=== PATIENT | male | born 1955 | race African-American/Black ===

== ENCOUNTER → 2017-02-08 | Outpatient (CLI) | payer SELFPAY ==
[~2017-02-08] MED LIST: AMLODIPINE BESYL5 MG PO; FORA V10-V12-D1 EACH MC; GLUCOMETER MC; HYDROCHLOROTH12.5 M3 PO; KEFLEX500 MG PO; METFORMIN HCL1000 MG PO; NAPROSYN500 MG PO; PERCOCET 5/31 TABLET PO; PERIDEX1 ML MM; PRAVASTATIN SOD40 MG PO; TEST STRIPS MC
== END | disposition home or self-care (01) ==
LOC: RAD 12:12
DX: R80.9 Proteinuria, unspecified (principal)
CPT/HCPCS: 76770

== ENCOUNTER → 2017-03-07 | Outpatient (CLI) | payer SELFPAY | END | disposition home or self-care (01) | LOC: MRI 10:11 → RAD 11:00 | DX: R94.39 Abnormal result of other cardiovascular function study (principal); I77.1 Stricture of artery; R93.5 Abnormal findings on diagnostic imaging of other abdominal regions, including retroperitoneum; R93.6 Abnormal findings on diagnostic imaging of limbs | CPT/HCPCS: 73725 ==

== ENCOUNTER 2017-05-27 09:39 | Inpatient (IN) | payer OTHER ==
[~2017-05-27] VITALS: Ht 167.6 cm; Wt 78.3 kg
[2017-05-27 13:00] LABS: HEMATOCRIT 35.7 % (38.0-50.0); MCH 27.1 PG (29.0-34.0); MCHC 34.7 G/DL (30.0-36.0); MCV 78.1 FL (86-99); MEAN PLAT.VOLUME 11.2 uM^3 (9.0-12.4); PLATELET COUNT 201 K/uL (156-360); RBC DIS.WIDTH-CV 12.1 % (11.8-14.6); RBC DIS.WIDTH-SD 34.3 % (39-53); RED BLOOD COUNT 4.57 M/uL (4.00-5.50); WHITE BLOOD COUNT 9.3 K/uL (4.1-10.2)
[2017-05-27 13:11] LABS: CHLORIDE 98 mEq/L (99-109); SODIUM 138 mEq/L (136-147)
[2017-05-27 13:13] LABS: GLUCOSE 69 mg/dL (70-99)
[2017-05-27 13:14] LABS: ANION GAP 14 MEQ/L (2-14)
[2017-05-27 13:17] LABS: GFR ESTIMATE (CALCULATED) 14 mL/min/
[2017-05-27 13:18] LABS: UREA NITROGEN (BUN) 70 mg/dL (9-23)
[2017-05-27 13:21] LABS: TROP-I INTERPRETATION NEGATIVE; TROPONIN-I 0.18 ng/mL (0.0-0.30)
[2017-05-27 16:39] LABS: CHLORIDE 107 mEq/L (99-109); SODIUM 140 mEq/L (136-147)
[2017-05-27 16:40] LABS: GLUCOSE 51 mg/dL (70-99)
[2017-05-27 16:42] LABS: ANION GAP 12 MEQ/L (2-14)
[2017-05-27 16:44] LABS: GFR ESTIMATE (CALCULATED) 18 mL/min/
[2017-05-27 16:45] LABS: UREA NITROGEN (BUN) 61 mg/dL (9-23)
[2017-05-27 16:54] LABS: POTASSIUM 2.3 mEq/L (3.7-5.4)
[2017-05-27 17:32] VITALS: BP 138/71
[2017-05-27 17:47] LABS: ADD MIUA? YES; BILIRUBIN NEGATIVE; BLOOD MODERATE; COLOR YELLOW ((YELLOW)); GLUCOSE (STRIP) >=500; KETONES NEGATIVE; LEUKOCYTES NEGATIVE; NITRITE NEGATIVE; PROTEIN (STRIP) 30; SPECIFIC GRAVITY 1.013 (1.000-1.030); UROBILINOGEN 0.2 MG/DL (0.2-1.0)
[2017-05-27 17:54] LABS: POINT-OF-CARE METER ID UU13113698; POINT-OF-CARE USER ID NUTSLF44
[2017-05-27 17:59] LABS: BACTERIA RARE /HPF; EPITHELIAL CELLS RARE /HPF; MUCUS TRACE /LPF; RED BLOOD CELLS 0-5 /HPF (0-5); UCUL ADDED? NO
[2017-05-27 18:08] LABS: UR CREATININE CONCENTRATION 153.7 MG/DL
[2017-05-27 18:10] LABS: TOTAL BILIRUBIN 0.3 mg/dL (0.0-1.0)
[2017-05-27 18:11] LABS: ALKALINE PHOSPHATASE 51 IU/L (3-129)
[2017-05-27 18:13] LABS: DIRECT BILIRUBIN 0.2 mg/dL (0.0-0.3)
[2017-05-27 18:20] LABS: POINT-OF-CARE METER ID UU13113698; POINT-OF-CARE USER ID NUTSLF44
[2017-05-27 20:03] VITALS: BP 131/68
[2017-05-27 20:33] LABS: TROP-I INTERPRETATION NEGATIVE; TROPONIN-I 0.15 ng/mL (0.0-0.30)
[2017-05-28 00:44] LABS: CHLORIDE 101 mEq/L (99-109); SODIUM 138 mEq/L (136-147)
[2017-05-28 00:47] LABS: ANION GAP 13 MEQ/L (2-14)
[2017-05-28 00:50] LABS: UREA NITROGEN (BUN) 71 mg/dL (9-23)
[2017-05-28 01:01] LABS: GFR ESTIMATE (CALCULATED) 14 mL/min/; GLUCOSE 91 mg/dL (70-99); POTASSIUM 3.5 mEq/L (3.7-5.4)
[2017-05-28 01:12] VITALS: BP 144/77
[2017-05-28 04:25] VITALS: BP 166/87
[2017-05-28 06:27] LABS: MCH 27.2 PG (29.0-34.0); MCHC 34.5 G/DL (30.0-36.0); MCV 78.8 FL (86-99); RBC DIS.WIDTH-CV 12.4 % (11.8-14.6); RBC DIS.WIDTH-SD 35.3 % (39-53); RED BLOOD COUNT 4.19 M/uL (4.00-5.50); WHITE BLOOD COUNT 8.1 K/uL (4.1-10.2)
[2017-05-28 06:53] LABS: ANION GAP 12 MEQ/L (2-14); CHLORIDE 101 MEQ/L (99-109); CREATINE KINASE 505 IU/L (1-294); GFR ESTIMATE (CALCULATED) 15 mL/min/; GLUCOSE 71 mg/dL (70-99); MAGNESIUM 2.3 mg/dl (1.3-2.7); POTASSIUM 3.7 MEQ/L (3.7-5.4); SAMPLE HEMOLYSIS CHECK 0; SAMPLE ICTERIC CHECK 0; SAMPLE LIPEMIA CHECK 0; SODIUM 137 MEQ/L (136-147); UREA NITROGEN (BUN) 70 mg/dL (9-23)
[2017-05-28 07:10] LABS: URIC ACID 12.1 mg/dL (3.1-9.2)
[2017-05-28 07:50] VITALS: BP 183/94
[2017-05-28 08:17] LABS: INTACT PARATHYROID HORMONE 28 pg/mL (10-69)
[2017-05-28 08:18] LABS: POINT-OF-CARE METER ID UU13113698; POINT-OF-CARE USER ID NUTSLF44
[2017-05-28 08:53] LABS: MEAN PLAT.VOLUME 11.8 uM^3 (9.0-12.4); PLATELET COUNT 228 K/uL (156-360)
[2017-05-28 11:43] LABS: POINT-OF-CARE METER ID UU14174216; POINT-OF-CARE USER ID NUTSLF44
[2017-05-28] MEDS ORDERED: FOLIC ACID1 MG PO (12:01)
[2017-05-28] MEDS ORDERED: NORVASC10 MG PO (12:01)
[2017-05-28] MEDS ORDERED: METFORMIN HCL1000 MG PO (12:01)
[2017-05-28] MEDS ORDERED: LEXAPRO10 MG PO (12:01)
[2017-05-28] MEDS ORDERED: ASPIR-LOW81 MG PO (12:01)
[2017-05-28] MEDS ORDERED: VITAMIN D31000 UNI2 PO (12:02)
[2017-05-28] MEDS ORDERED: NEURONTIN300 MG PO (12:02)
[2017-05-28] MEDS ORDERED: LISINOPRIL20 MG PO (12:02)
[2017-05-28] MEDS ORDERED: CRESTOR40 MG PO (12:02)
[2017-05-28] MEDS ORDERED: LEVEMIR100 UNIT/2 SC (12:03)
[2017-05-28] MEDS ORDERED: CHLORTHALIDONE50 MG PO (12:03)
[2017-05-28] MEDS ORDERED: CARDURA1 M1 PO (12:03)
[2017-05-28] MEDS ORDERED: JANUVIA100 MG PO (12:03)
[2017-05-28 16:16] LABS: POINT-OF-CARE METER ID UU14174216
[2017-05-28 16:25] VITALS: BP 163/82
[2017-05-28 16:31] LABS: POINT-OF-CARE METER ID UU14174216; POINT-OF-CARE USER ID NUTSLF44
[2017-05-28 19:55] VITALS: BP 141/74
[2017-05-28 21:09] LABS: POINT-OF-CARE METER ID UU13113698
[2017-05-29 00:01] VITALS: BP 114/59
[2017-05-29 04:20] VITALS: BP 161/80
[2017-05-29 06:16] LABS: EOSINOPHIL COUNT 0.1 K/uL (0-0.3); IMMATURE GRANULOCYTE (%) 0.9 % (0.0-0.7); IMMATURE GRANULOCYTE COUNT 0.1 K/uL; INSTRUMENT ABS NEUTROPHIL CT 4.1 K/uL; LYMPHOCYTE COUNT 1.2 K/uL (1.0-2.8); MCH 27.6 PG (29.0-34.0); MCHC 34.7 G/DL (30.0-36.0); MCV 79.6 FL (86-99); MEAN PLAT.VOLUME 11.4 uM^3 (9.0-12.4); MONOCYTE (%) 13.3 % (3-12); MONOCYTE COUNT 0.9 K/uL (0-0.8); NEUTROPHIL (%) 64.4 % (45-76); NEUTROPHIL COUNT 4.1 K/uL (1.8-6.4); PLATELET COUNT 240 K/uL (156-360); RBC DIS.WIDTH-CV 12.7 % (11.8-14.6); RBC DIS.WIDTH-SD 36.3 % (39-53); RED BLOOD COUNT 3.77 M/uL (4.00-5.50); WHITE BLOOD COUNT 6.4 K/uL (4.1-10.2)
[2017-05-29 06:53] LABS: ANION GAP 9 MEQ/L (2-14); CHLORIDE 104 MEQ/L (99-109); POTASSIUM 3.5 MEQ/L (3.7-5.4); SAMPLE HEMOLYSIS CHECK 0; SAMPLE ICTERIC CHECK 0; SAMPLE LIPEMIA CHECK 0; SODIUM 140 MEQ/L (136-147); UREA NITROGEN (BUN) 62 mg/dL (9-23)
[2017-05-29 06:54] LABS: GFR ESTIMATE (CALCULATED) 21 mL/min/; GLUCOSE 196 mg/dL (70-99)
[2017-05-29 07:59] LABS: POINT-OF-CARE METER ID UU13113781
[2017-05-29 08:13] VITALS: BP 164/85
[2017-05-29 11:44] LABS: POINT-OF-CARE METER ID UU13113781
[2017-05-29 12:11] VITALS: BP 188/80
[2017-05-29 16:22] VITALS: BP 173/95
[2017-05-29 19:05] VITALS: BP 149/75
[2017-05-30] VITALS (8 sets, daily range): BP systolic 138–180; BP diastolic 68–90
[2017-05-30 06:04] LABS: ANION GAP 10 MEQ/L (2-14); CHLORIDE 106 MEQ/L (99-109); GLUCOSE 269 mg/dL (70-99); POTASSIUM 3.8 MEQ/L (3.7-5.4); SAMPLE HEMOLYSIS CHECK 0; SAMPLE ICTERIC CHECK 0; SAMPLE LIPEMIA CHECK 0; SODIUM 140 MEQ/L (136-147); UREA NITROGEN (BUN) 54 mg/dL (9-23)
[2017-05-30 06:33] LABS: GFR ESTIMATE (CALCULATED) 35 mL/min/; MAGNESIUM 1.7 mg/dl (1.3-2.7)
[2017-05-30 21:43] LABS: POINT-OF-CARE METER ID UU13113698
[2017-05-31 03:40] VITALS: BP 157/69
[2017-05-31 06:13] LABS: EOSINOPHIL (%) 1.4 % (0-5); EOSINOPHIL COUNT 0.1 K/uL (0-0.3); HEMATOCRIT 29.6 % (38.0-50.0); IMMATURE GRANULOCYTE (%) 0.8 % (0.0-0.7); IMMATURE GRANULOCYTE COUNT 0.1 K/uL; INSTRUMENT ABS NEUTROPHIL CT 6.8 K/uL; LYMPHOCYTE COUNT 1.5 K/uL (1.0-2.8); MCH 27.1 PG (29.0-34.0); MCHC 33.1 G/DL (30.0-36.0); MCV 81.8 FL (86-99); MEAN PLAT.VOLUME 10.6 uM^3 (9.0-12.4); MONOCYTE (%) 7.3 % (3-12); MONOCYTE COUNT 0.7 K/uL (0-0.8); NEUTROPHIL (%) 73.5 % (45-76); NEUTROPHIL COUNT 6.8 K/uL (1.8-6.4); PLATELET COUNT 296 K/uL (156-360); RBC DIS.WIDTH-CV 12.6 % (11.8-14.6); RBC DIS.WIDTH-SD 37.8 % (39-53); RED BLOOD COUNT 3.62 M/uL (4.00-5.50); WHITE BLOOD COUNT 9.2 K/uL (4.1-10.2)
[2017-05-31 06:44] LABS: ANION GAP 9 MEQ/L (2-14); CHLORIDE 105 MEQ/L (99-109); GFR ESTIMATE (CALCULATED) 44 mL/min/; GLUCOSE 219 mg/dL (70-99); POTASSIUM 3.7 MEQ/L (3.7-5.4); SAMPLE HEMOLYSIS CHECK 0; SAMPLE ICTERIC CHECK 0; SAMPLE LIPEMIA CHECK 0; SODIUM 143 MEQ/L (136-147); UREA NITROGEN (BUN) 39 mg/dL (9-23)
[2017-05-31 07:02] VITALS: BP 151/70
[2017-05-31 11:16] LABS: POINT-OF-CARE METER ID UU13113781
[2017-05-31 14:48] VITALS: BP 134/72
[2017-05-31 19:30] VITALS: BP 158/80
[2017-05-31 23:45] VITALS: BP 124/65
[2017-06-01 02:50] VITALS: BP 156/83
[2017-06-01 05:40] LABS: HEMATOCRIT 28.6 % (38.0-50.0); MCH 27.6 PG (29.0-34.0); MCHC 33.6 G/DL (30.0-36.0); MCV 82.2 FL (86-99); MEAN PLAT.VOLUME 10.4 uM^3 (9.0-12.4); PLATELET COUNT 318 K/uL (156-360); RBC DIS.WIDTH-CV 12.9 % (11.8-14.6); RBC DIS.WIDTH-SD 38.5 % (39-53); RED BLOOD COUNT 3.48 M/uL (4.00-5.50); WHITE BLOOD COUNT 6.7 K/uL (4.1-10.2)
[2017-06-01 06:01] LABS: ANION GAP 7 MEQ/L (2-14); CHLORIDE 103 MEQ/L (99-109); GFR ESTIMATE (CALCULATED) 53 mL/min/; GLUCOSE 144 mg/dL (70-99); POTASSIUM 3.6 MEQ/L (3.7-5.4); SAMPLE HEMOLYSIS CHECK 0; SAMPLE ICTERIC CHECK 0; SAMPLE LIPEMIA CHECK 0; SODIUM 141 MEQ/L (136-147); UREA NITROGEN (BUN) 28 mg/dL (9-23)
[2017-06-01] MEDS ORDERED: JANUVIA25 MG PO (08:14)
[2017-06-01] MEDS ORDERED: NOVOLOG 10100 UNITS/ SC ×2 (08:14→08:15)
[2017-06-01] MEDS ORDERED: CARVEDILOL25 MG PO (08:14)
[2017-06-01] MEDS ORDERED: Procardia XL,Adalat PO (08:14)
[2017-06-01] MEDS ORDERED: LEVEMIR100 UNIT/2 SC (08:16)
[2017-06-01] MEDS ORDERED: INSULIN SYRING1 EA11 MC (08:18)
[2017-06-01] MEDS ORDERED: BLOOD LANCETS1 EACH MC (08:18)
[2017-06-01 08:50] VITALS: BP 152/83
[2017-06-01 09:17] VITALS: BP 171/84
[2017-06-01 13:20] VITALS: BP 116/63
[2017-06-04 16:52] LABS: POINT-OF-CARE METER ID UU14174216
== END 2017-06-01 20:03 | disposition home or self-care (01) | DRG 683 ==
LOC: EME 09:39 → EDOF 14:53 → 4EAST 14:53
PROVIDERS: Emergency Medicine; Hospitalist; Internal Medicine; Internal Medicine Nephrology
DX: N17.9 Acute kidney failure, unspecified (principal); E86.0 Dehydration; N13.8 Other obstructive and reflux uropathy; R33.9 Retention of urine, unspecified; E87.6 Hypokalemia; T50.2X5A Adverse effect of carbonic-anhydrase inhibitors, benzothiadiazides and other diuretics, initial encounter; E83.51 Hypocalcemia; I95.9 Hypotension, unspecified; E11.649 Type 2 diabetes mellitus with hypoglycemia without coma; E11.65 Type 2 diabetes mellitus with hyperglycemia; R32 Unspecified urinary incontinence; E78.5 Hyperlipidemia, unspecified; I10 Essential (primary) hypertension; I48.0 Paroxysmal atrial fibrillation; G89.29 Other chronic pain; M54.9 Dorsalgia, unspecified; Z86.73 Personal history of transient ischemic attack (TIA), and cerebral infarction without residual deficits; Z91.14 Patient's other noncompliance with medication regimen; Z79.84 Long term (current) use of oral hypoglycemic drugs
CPT/HCPCS: 71010; 76770; 80048; 80048 91; 80069; 80076; 81003; 82306; 82550; 82570; 82948; 83735; 83970; 84156; 84484; 84550; 85025; 85027; 93005; 99281; 99285; J0610; J1644; J1815; J3480; J7030; J7050